=== PATIENT | female | born 1950 | race Hispanic/Latino ===

== ENCOUNTER 2018-09-18 06:53 | Day surgery (SDC) | payer OTHER ==
[2018-09-15 12:27] LABS: Absolute Lymphocytes (CBC) 2.6 K/uL (0.7-4.9); Absolute Monocytes 0.5 K/uL (0.1-1.3); Absolute Neutrophil 4.8 K/uL (1.8-8.0); Basophils % 0.6 % (0-1.3); Eosinophils % 1.5 % (0-4.4); Hematocrit 39.6 % (36.0-45.0); Lymphocytes % 32.3 % (15.3-44.8); MPV 8.7 fL (7.6-11.3); Monocytes % 6.6 % (3.3-12.3); RBC Red Blood Cell Count 4.41 M/uL (3.86-4.86)
--- NOTE | 2018-09-15 12:33 | RAD REPORT ---
EXAM DESCRIPTION: RAD - Chest Pa And Lat (2 Views) - 09/15/2018 12:25 pm CLINICAL HISTORY: preop Chest pain. COMPARISON: No comparisons TECHNIQUE: PA and lateral views of the chest were obtained. FINDINGS: The lungs are hyperexpanded compatible with COPD. The heart is upper limit of normal in si ze. No fracture or aggressive bony process. Sternotomy wires. IMPRESSION: COPD without acute process identified.
[2018-09-15 12:39] LABS: Potassium 4.2 mmol/L (3.5-5.1)
[2018-09-15 12:57] LABS: Protime INR 0.98
--- OUTSIDE RECORDS SUMMARY | 2018-09-18 06:56 | XMS REPORT | Continuity of Care Document ---
:1950 Author Organization Interface Problems Problem Status Onset Classification Date Comments Source Date Reported Essential 09/10/19 Diagnosis 09/09/2017 [facility] hypertension 18 Viral bronchitis 09/10/19 Diagnosis 09/09/2017 [facility] 18 Hacking cough 09/10/19 Diagnosis 09/09/2017 [facility] 18 Nausea and 08/21/19 Diagnosis 08/21/2016 [facility] vomiting 17 Epigastric pain 08/21/19 Diagnosis 08/21/2016 [facility] 17 Medications Medication Details Route Status Patient Ordering Order Source Instructions Provider Date Aspirin 81 MG aspirin 81 mg Active [facility] Chewable Tablet chewable tablet Chew 1 tablet every day by oral route. clopidogrel 75 MG clopidogrel 75 Active [facility] Oral Tablet mg tablet Fenofibrate 48 MG fenofibrate Active [facility] Oral Tablet nanocrystallize d 48 mg tablet TAKE 1 TABLET BY MOUTH EVERY DAY Hydrochlorothiazid hydrochlorothia Active [facility] e 25 MG Oral zide 25 mg Tablet tablet 24 HR Isosorbide isosorbide Active [facility] Mononitrate 60 MG mononitrate ER Extended Release 60 mg Oral Tablet tablet,extended release 24 hr TAKE 1/2 TAB BY MOUTH EVERY MORNING Levothyroxine levothyroxine Active [facility] Sodium 0.075 MG 75 mcg tablet Oral Tablet TAKE ONE TABLET BY MOUTH EVERY DAY Lisinopril 20 MG lisinopril 20 Active [facility] Oral Tablet mg tablet Medrol (Michael) 4 mg Medrol (Michael) 4 Active [facility] tablets in a dose mg tablets in a pack dose pack Take as directed 200 ACTUAT ProAir HFA 90 Active [facility] Albuterol 0.09 mcg/actuation MG/ACTUAT Metered aerosol inhaler Dose Inhaler Inhale 2 puffs [ProAir] every 4-6 hours by inhalation route as directed for 10 days. Rosuvastatin rosuvastatin 20 Active [facility] calcium 20 MG Oral mg tablet TAKE Tablet 1 TABLET BY MOUTH EVERY DAY Ergocalciferol Vitamin D2 Active [facility] 66890 UNT Oral 50,000 unit Capsule capsule Atenolol 100 MG atenolol 100 mg Active [facility] Oral Tablet tablet Sucralfate 100 Carafate 100 Active [facility] MG/ML Oral mg/mL oral Suspension suspension [Carafate] carvedilol 25 MG carvedilol 25 Active [facility] Oral Tablet mg tablet Chantix Starting Chantix Active [facility] Month Box 0.5 mg Starting Month (11)-1 mg (42) Box 0.5 mg tablets in dose (11)-1 mg (42) pack tablets in dose pack Cyclobenzaprine cyclobenzaprine Active [facility] hydrochloride 10 10 mg tablet MG Oral Tablet Lisinopril 10 MG lisinopril 10 Active [facility] Oral Tablet mg tablet Omeprazole 20 MG omeprazole 20 Active [facility] Delayed Release mg Oral Capsule capsule,delayed release pantoprazole 40 MG pantoprazole 40 Active [facility] Delayed Release mg Oral Tablet tablet,delayed release Famotidine 20 MG Pepcid 20 mg Active [facility] Oral Tablet tablet Take 1 [Pepcid] tablet twice a day by oral route for 10 days. Citric Acid 20530 Prepopik 10 Active [facility] MG / Magnesium mg-3.5 gram-12 Oxide 3500 MG / gram oral picosulfate sodium powder packet 10 MG Powder for Oral Solution [Prepopik] Ondansetron 8 MG Zofran 8 mg Active [facility] Oral Tablet tablet Take 1 [Zofran] tablet every 8 hours by oral route for 2 days. Allergies, Adverse Reactions, Alerts Substance Category Reaction Severity Reaction Status Date Comments Source type Reported Immunizations Immunization Date Given Site Status Last Updated Comments Source Results Order Results Value Reference Date Interpretation Comments Source Name Range Influenza A negative [facility] 2017 Influenza B negative [facility] 2017 Vital Signs Vital Sign Value Date Comments Source Diastolic (mm Hg) 82 09/09/2017 [facility] Height 63 09/09/2017 [facility] Systolic (mm Hg) 144 09/09/2017 [facility] Weight 138 09/09/2017 [facility] Diastolic (mm Hg) 102 08/20/2016 [facility] Height 63 08/20/2016 [facility] Systolic (mm Hg) 187 08/20/2016 [facility] Weight 138 08/20/2016 [facility] Encounters Location Location Encounter Encounter Reason Attending ADM DC Status Source Details Type Number For Provider Date Date Visit [place] Eleazar Zamora [id number] Sera 08/20 [facility] N[facility]hi, [id number] Nidhi - AD COMPOSITOR: [id number] [address] , Ph. JILL - Dari [id number] Dari 09/09 [facility] Wesley [phone] Wesley - PA-C: [id number] [address], [address] [place] [address], [place] [address] , Ph. Procedures Procedure Code Date Perfomer Comments Source CABG/Stent [facility]
--- OUTSIDE RECORDS SUMMARY | 2018-09-18 06:56 | XMS REPORT | Clinical Summary ---
:1950 Author Organization [facility] Address [address] [place] [address] Care Team Providers Name Role Phone Shadi Morales MD Primary Care Provider Allergies Active Allergy Reactions Severity Noted Date Comments Hydrocodone 08/24/2018 Medications Medication Sig Dispensed Refills Start Date End Date Status fenofibrate (TRICOR) Take 48 mg by 0 Active 48 MG tablet mouth daily. lisinopril Take 20 mg by 0 Active (PRINIVIL,ZESTRIL) mouth daily. 20 mg tablet clopidogrel (PLAVIX) Take 1 tablet 30 tablet 0 08/26/2018 09/25/2018 Active 75 mg tablet (75 mg total) by mouth daily for 30 days. isosorbide Take 1 tablet 30 tablet 0 08/26/2018 09/25/2018 Active mononitrate (IMDUR) (60 mg total) 60 MG 24 hr tablet by mouth daily for 30 days. levothyroxine Take 1 tablet 30 tablet 0 08/26/2018 09/25/2018 Active (SYNTHROID, LEVOXYL) (75 mcg 75 mcg tablet total) by mouth daily for 30 days. aspirin (ECOTRIN) Take 1 tablet 30 tablet 0 08/27/2018 09/26/2018 Active 325 MG enteric (325 mg coated tablet total) by mouth daily for 30 days. ranolazine (RANEXA) Take 1 tablet 60 tablet 0 08/26/2018 09/25/2018 Active 500 MG 12 hr ER (500 mg tablet total) by mouth 2 (two) times a day for 30 days. rosuvastatin Take 1 tablet 30 tablet 0 08/26/2018 09/25/2018 Active (CRESTOR) 20 MG (20 mg total) tablet by mouth every evening for 30 days. NIFEdipine XL Take 1 tablet 60 tablet 0 08/26/2018 09/25/2018 Active (PROCARDIA XL) 60 MG (60 mg total) 24 hr tablet by mouth 2 (two) times a day for 30 days. isosorbide Take 60 mg by 0 08/26/2018 Discontinued mononitrate (IMDUR) mouth daily. 60 MG 24 hr tablet rosuvastatin Take 20 mg by 0 08/26/2018 Discontinued (CRESTOR) 20 MG mouth every tablet evening. clopidogrel (PLAVIX) Take 75 mg by 0 08/26/2018 Discontinued 75 mg tablet mouth daily. levothyroxine Take 75 mcg 0 08/26/2018 Discontinued (SYNTHROID, LEVOXYL) by mouth 75 mcg tablet daily. ranolazine (RANEXA) Take 500 mg 0 08/26/2018 Discontinued 500 MG 12 hr ER by mouth 2 tablet (two) times a day. amLODIPine (NORVASC) Take 5 mg by 0 08/26/2018 Discontinued 5 mg tablet mouth daily. Active Problems Problem Noted Date Chest pain 08/24/2018 Encounters Date Type Specialty Care Team Description 08/25/2018 Surgery Procedural Cardiology Earl Montemayor Bypass graft left MD [place] [facility] [40208 (CPT)] 08/24/2018 - Emergency General Internal Ray, Miguel Angel Chest pain, unspecified type (Primary Dx); 08/26/2018 Medicine ANTONIO Kaur Coronary artery disease of [place] artery of [place] heart with stable angina pectoris (HCC) Jo Ann Bajwa MD Kandala, Ranganath, MD Mistry, Kalpna Kantilal, MD 08/24/2018 Travel after 09/17/2017 Social History Tobacco Use Types Packs/Day Years Used Date Current Some Day Smoker Smokeless Tobacco: Never Used Alcohol Use Drinks/Week oz/Week Comments No Alcohol Habits Answer Date Recorded How often do you have a drink containing alcohol? Never 08/24/2018 How many drinks containing alcohol do you have on a typical Not asked day when you are drinking? How often do you have six or more drinks on one occasion? Not asked Sex Assigned at Date Recorded Not on file Job Start Date Occupation Industry Not on file Not on file Not on file Travel History Travel Start Travel End No recent travel history available. Last Filed Vital Signs Vital Sign Reading Time Taken Blood Pressure 123/60 08/26/2018 12:07 PM CDT Pulse 73 08/26/2018 12:07 PM CDT Temperature 36.3 C (97.4 F) 08/26/2018 12:07 PM CDT Respiratory Rate 16 08/26/2018 12:07 PM CDT Oxygen Saturation 95% 08/26/2018 12:07 PM CDT Inhaled Oxygen Concentration - - Weight 60.3 kg (133 lb) 08/25/2018 2:14 PM CDT Height 160 cm (5' 3") 08/24/2018 11:38 PM CDT Body Mass Index 23.56 08/25/2018 2:14 PM CDT Plan of Treatment Health Maintenance Due Date Last Done Comments CERVICAL CANCER SCREENING 1973 BREAST CANCER SCREENING 2002 COLON CANCER SCREENING 2002 SHINGLES VACCINES (#1) 2002 65+ PNEUMOCOCCAL VACCINE (1 of 2 - PCV13) 2017 PNEUMOCOCCAL POLYSACCHARIDE VACCINE AGE 65 AND OVER 2017 INFLUENZA VACCINE 12/14/2018 Implants Implanted Type Area Workforce Development Assistant Device Shelf Model / Identifier Expiration Serial / Lot Date Stent System 2.25 X 22mm Resolute [place] Rx Coronary - [id number] Coronary N/A : [employer] [facility] - 07/04/2019 [id number] / Implanted: Qty: 1 on 08/25/2018 by Earl Montemayor MD Stents N/A CARDIAC RYHTYM / MGMT [id number] Procedures Procedure Name Priority Date/Time Associated Comments Diagnosis ECHOCARDIOGRAM 2D Routine 08/26/2018 1:00 Results for this COMPLETE W MMODE PM CDT procedure are in SPECTRAL COLOR DOPPLER the results (82518) section. ESTIMATED GFR Routine 08/26/2018 4:00 Results for this AM CDT procedure are in the results section. HC COMPLETE BLD COUNT Routine 08/26/2018 4:00 Results for this W/AUTO DIFF AM CDT procedure are in the results section. BASIC METABOLIC PANEL Routine 08/26/2018 4:00 Results for this AM CDT procedure are in the results section. CV PCI STENT Routine 08/25/2018 5:09 Results for this PM CDT procedure are in the results section. CV BYPASS GRAFT LEFT Routine 08/25/2018 5:09 Results for this HEART PM CDT procedure are in the results section. TROPONIN Timed 08/25/2018 4:45 Results for this AM CDT procedure are in the results section. ECG 12-LEAD Routine 08/25/2018 12:15 Results for this AM CDT procedure are in the results section. TROPONIN Timed 08/24/2018 11:40 Results for this PM CDT procedure are in the results section. XR CHEST 1 VW PORTABLE STAT 08/24/2018 7:35 Results for this PM CDT procedure are in the results section. ESTIMATED GFR STAT 08/24/2018 7:26 Results for this PM CDT procedure are in the results section. B NATRIURETIC PEPTIDE STAT 08/24/2018 7:26 Results for this PM CDT procedure are in the results section. TROPONIN STAT 08/24/2018 7:26 Results for this PM CDT procedure are in the results section. COMPREHENSIVE METABOLIC STAT 08/24/2018 7:26 Results for this PANEL PM CDT procedure are in the results section. HC COMPLETE BLD COUNT STAT 08/24/2018 7:26 Results for this W/AUTO DIFF PM CDT procedure are in the results section. ECG ED PRELIMINARY Routine 08/24/2018 6:58 Results for this INTERPRETATION PM CDT procedure are in the results section. ECG 12-LEAD STAT 08/24/2018 6:14 Results for this PM CDT procedure are in the results section. after 09/17/2017 Results Echocardiogram complete w contrast and 3D if needed (08/26/2018 1:00 PM CDT) AoV Area, Vmax 2.62 cm2 [facility] AoV Area, VTI 3.07 cm2 [facility] AoV Mean PG 3.00 mmHg [facility] AoV Peak PG 4.84 mmHg [facility] AoV Vmax 1.10 m/s [facility] AoV VTI 0.18 m [facility] IVS,d 0.78 cm [facility] IVS/LVPW,2D 0.96 [facility] Left Atrium Dimension Anterior 3.00 cm [facility] LV,d 4.33 cm [facility] LV EF,2D 66.74 % [facility] LV,s 3.00 cm [facility] LVOT area 3.14 cm2 [facility] LVOT Diam,S 2.00 cm [facility] LVOT Vmax 0.92 m/s [facility] LVOT VTI 0.18 m [facility] LVPWD,d 0.81 cm [facility] MV E A ratio 0.89 [facility] E wave decelartion time 239.00 msec [facility] MV Peak A Izaiah 0.75 m/s [facility] MV valve area p 1/2 method 3.17 cm2 [facility] MV Peak E Izaiah 0.66 m/s [facility] MV stenosis pressure 1/2 time 69.31 ms [facility] AV LVOT peak gradient 3.36 mmHg [facility] Ao Root,d,2D 3.20 cm [facility] LV SYS VOL 35.00 ml [facility] LV MORALEZ VOL 84.44 ml [facility] LV SV Teich 2D 49.44 ml [facility] LV Vol s Teich PSAX 35.00 ml [facility] AoV Vmn 0.82 [facility] LV FS Teich 2D 30.72 [facility] MV AE ratio 1.13 [facility] LV FS Cube 2D 30.72 [facility] LVOT Vmn 0.67 [facility] Aov area Vmn 2.54 cm2 [facility] LVOT mean grad 2.00 mmHg [facility] MAX Pred HR 154.34 [facility] 85 of MPHR 131.19 [facility] Ao d LA s ratio 1.07 [facility] Calc MPHR 154.34 bpm [facility] LV SV Cube 2D 54.18 ml [facility] LV vol d cube 2D 81.18 ml [facility] LV vol s cube 2D 27.00 ml [facility] MV Decel slope 2.77 m/s2 [facility] Pred Exer Dur R1 7.29 [facility] Pred METS R1 6.16 [facility] Velocity Ratio (V1/V2) 0.84 m/s [facility] EF 58.55 % [facility] E/A ratio 0.88 [facility] Narrative Performed At Left Ventricular ejection fraction is 55 - 60% [facility] Spectral Doppler shows reduced, appropriate for age pattern of LV diastolic filling The aortic valve appears trileaflet and mildly calcified Trace mitral valve regurgitation Trace tricuspid valve regurgitation The pulmonic valve appears normal Normal right ventricular size, wall thickness and global function Performing Organization Address City/State/Zipcode Phone Number [facility] [address] [place] [address] Estimated GFR (08/26/2018 4:00 AM CDT)Only the most recent of2 resultswithin the time period is included. Estimated GFR >=90 mL/min/1.73 m2 AMARI ROMAN CATHOLIC SUGAR Comment: [facility] CatergoryUnitsInterpretation G1 >=90 Normal or high G2 60-89Mildly decreased [id number] to moderately decreased [id number] to severely decreased G4 15-29Severely decreased G5 <15Kidney failure The eGFR was calculated using the Chronic Kidney Disease Epidemiology Collaboration (CKD-EPI) equation. Interpretation is based on recommendations of the National Kidney Foundation-Kidney Disease Outcomes Quality Initiative (NKF-KDOQI) published in 2014. Specimen Plasma specimen Performing Organization Address City/[facility]/Zipcode Phone Number [facility] DEPARTMENT OF PATHOLOGY [address] [place] [address] AND GENOMIC MEDICINE [facility] [address] [place] [address] HOSPITAL CBC with platelet and differential (08/26/2018 4:00 AM CDT)Only the most recent of2 resultswithin the time period is included. WBC 8.3 4.5 - 11.0 k/uL [facility] RBC 4.46 4.20 - 5.50 m/uL [facility] HGB 13.7 12.0 - 16.0 g/dL [facility] HCT 40.5 37.0 - 47.0 % [facility] MCV 90.8 82.0 - 100.0 fL [facility] MCH 30.7 27.0 - 34.0 pg [facility] MCHC 33.8 31.0 - 37.0 g/dL [facility] RDW - SD 43.8 37.0 - 55.0 fL [facility] MPV 10.8 6.9 - 11.0 fL [facility] Platelet count 215 150 - 400 K/uL [facility] Nucleated RBC 0.00 /100 WBC [facility] Neutrophils 64.7 39.0 - 69.0 % [facility] Lymphocytes 25.3 25.0 - 45.0 % [facility] Monocytes 7.3 0.0 - 10.0 % [facility] Eosinophils 1.9 0.0 - 5.0 % [facility] Basophils 0.4 0.0 - 1.0 % [facility] Immature granulocytes 0.4 0.0 - 1.0 % [facility] Specimen Blood Performing Organization Address City/[facility] Phone Number [facility] DEPARTMENT OF PATHOLOGY [id number] [place] [address] [facility] [id number] [place] [address] Basic metabolic panel (08/26/2018 4:00 AM CDT) Sodium 139 135 - 148 mEq/L [facility] Potassium 3.8 3.5 - 5.0 mEq/L [facility] Chloride 105 98 - 112 mEq/L [facility] CO2 21 (L) 24 - 31 mEq/L [facility] Anion gap 13@ANIO 7 - 15 mEq/L [facility] BUN 15 8 - 23 mg/dL [facility] Creatinine 0.63 0.50 - 0.90 mg/dL [facility] Glucose 79 65 - 99 mg/dL [facility] Calcium 9.4 8.8 - 10.2 mg/dL [facility] Specimen Plasma specimen Performing Organization Address City/State/Zipcode Phone Number [facility] DEPARTMENT OF PATHOLOGY [id number] [place] [address] Cv dairy lab technician procedure (08/25/2018 5:09 PM CDT) Impressions Performed At 1.Patent AMARAL to LAD. [facility] 2.Patent SVG to OM2. 3.Patent SVG to OM3. 4.Severe left main disease. 5.Severe distal LAD in-stent restenosis 95%. PLAN: PCI of the distal LAD in-stent restenosis to the AMARAL to LAD. PROCEDURE: A 6-Monegasque FLORES guide was then used to cannulate the AMARAL to LAD.A 0.014 BMW Volcano wire was then used to cross the distal LAD.A 2.0 x 12 balloon was then used to do predilatation.Multiple predilatations were done. Following this, a Resolute Jamal 2.25 x 22 mm drug-eluting stent was then advanced into the distal LAD in-stent restenosis.This was then deployed at high atmospheres. Following this, additional cineangiography was done to confirm stent was well deployed, there were no perforations.There was a small waste in the proximal portion.A 2.5 x 12 noncompliant balloon was then used to postdilate the proximal portion of the stent.Following this, additional cineangiography was done to confirm stent was well deployed, there were no perforations or dissections, which were not.The overall procedure was a success with 0% stenosis and GARY-3 flow upon completion.The patient tolerated the procedure well.There were no complications.Hemostasis was obtained by manual pressure as there was severe calcification of the right common femoral artery. IMPRESSION: Successful Resolute [place] 2.25 x 22 mm drug-eluting stent to the distal LAD in-stent restenosis. PLAN: Maximal medical therapy. MEDICATIONS GIVEN THROUGHOUT THE PROCEDURE: Conscious sedation, radial cocktail, hydralazine IV, labetalol IV, Brilinta 180, Plavix 300. Thank you for the opportunity in participating in this patient's care. Please call if any questions. Narrative Performed At [facility] Patent AMARAL to LAD. Distal LAD stent, severe instent resteonsis, 95% Severe proximal 1st diagonal 90% Severe ostial LCx, 90% Patent SVG to OM2 Chronic total 100%, RCA stent Patent SVG to RCA EDP 13 Successful Resolute Jamal 2.25 x 22 mm AIRAM to distal LAD instent restenosis. INDICATION FOR PROCEDURE: Unstable angina. CANARY RAISER: Earl Montemayor MD PROCEDURE IN DETAIL: After informed consent obtained including bleeding, WI, stroke, problems with circulation or electrical activity as well as worsening renal function with contrast, need for dual antiplatelet therapy.After stent placement, the patient was prepped and draped in usual sterile fashion.Local anesthesia was given.A 5-Monegasque short sheath was used to gain access to the right common femoral artery using ultrasound guidance.There was resistance upon entering the distal abdominal aorta; therefore, a pigtail was done and wire was then readvanced.Everything was then followed with long exchange J-wire. Selective cine coronary angiography was then performed in various left and right anterior oblique projections using manual injection of Visipaque contrast along with a JR4 and a JL3.5 diagnostic catheter.Following this, JR4 diagnostic catheter was then advanced in the left ventricle.It was changed for pigtail and the pigtail was done with the left ventriculogram.Pressure recorded during pullback of the catheter from the left ventricle into the ascending aorta. Following this, JR4 diagnostic catheter was then used to engage the SVG to OM2 and it was injected.It was then used to engage the SVG to RCA and it was injected.It was then used to engage the AMARAL to LAD and injected. Following this, due to severe stenosis, exchanged over long J wire for PCI. FINDINGS: 1.Left main trunk.Left main trunk is a large caliber vessel, is approximately 32 mm in length, has severe distal left main 70%. 2.Left anterior descending artery.Left anterior descending artery is a large caliber vessel.There is occlusion of 100% in the proximal area, there is a proximal first diagonal that also has a severe lesion 90%. 3.Left circumflex artery.Left circumflex artery is a large caliber vessel, contains one large OM branch in the proximal section and one moderate OM branch in the mid section and distally it becomes one posterior lateral branch. The ostial circumflex has a severe 90% lesion.There is competitive flow in an OM2. 4.Right coronary artery.Right coronary artery is a large caliber codominant vessel.There is a stent in the proximal RCA, stent is 100% occluded. 5.Left ventriculogram.EF is 50%, EDP noted. 6.AMARAL to LAD.AMARAL to LAD is patent.The distal LAD after the touchdown on the AMARAL has a stent that has severe in-stent restenosis that was 95%. 7.SVG to RCA.This was patent without flow limiting lesions. 8.SVG to OM2.This was patent without any flow limiting lesions. 9.Distal abdominal aortogram.Distal abdominal aortogram shows there is severe distal abdominal aortic disease with severe calcifications. Performing Organization Address City/State/Zipcode Phone Number [facility] [address] [place] [address] Troponin (08/25/2018 4:45 AM CDT)Only the most recent of3 resultswithin the time period is included. Troponin <0.30 0.00 - 0.30 ng/mL [facility] Comment: HOSPITAL 0.11 - 1.49 ng/mlMay indicate increased risk of acute coronary syndrome. >=1.5 ng/mlConsistent with acute myocardial infarction. The diagnostic value of a single normal or non-diagnostic result is questionable.Serial samples at 2-6 hour intervals are required to rule out acute myocardial injury. Specimen Plasma specimen Performing Organization Address City/[facility]/Zipcode Phone Number [facility] DEPARTMENT OF PATHOLOGY [id number] [place] [address] AND GENOMIC MEDICINE [facility] [phone] [place] [address] ECG 12 lead (08/25/2018 12:15 AM CDT)Only the most recent of2 resultswithin the time period is included. Ventricular rate 62 [facility] Atrial rate 62 [facility] AR interval 192 [facility] QRSD interval 98 [facility] QT interval 438 [facility] QTC interval 444 [facility] P axis 1 35 [facility] QRS axis 1 76 [facility] T wave axis 67 [facility] EKG impression Normal sinus rhythm-Nonspecific ST and T wave [facility] MUSE abnormality-Abnormal ECG-In automated comparison with ECG of 26-DEC-2015 03:49,-No significant change was found- Narrative Performed At Performing Organization Address [facility] Phone Number [facility] MUSE [address] [place] [address] XR Chest 1 Vw Portable (08/24/2018 7:35 PM CDT) Narrative Performed At EXAMINATION:XR CHEST 1 VW PORTABLE [facility] CLINICAL HISTORY:Chest pain COMPARISON:12/25/2015 IMPRESSION: 1.Lungs are clear. 2.Normal heart size. Poststernotomy. 3.No acute osseous abnormality. [facility]-[id number] Procedure Note Hm Interface, Radiology Results Incoming - 08/24/2018 7:40 PM CDT EXAMINATION: XR CHEST 1 VW PORTABLE CLINICAL HISTORY: Chest pain COMPARISON: 12/25/2015 IMPRESSION: 1. Lungs are clear. 2. Normal heart size. Poststernotomy. 3. No acute osseous abnormality. [facility]-[id number] Performing Organization Address [facility]/Zipcode Phone Number [facility] [address] [place] [address] B natriuretic peptide (08/24/2018 7:26 PM CDT) BNP 31 0 - 100 pg/mL [facility] Specimen Blood Performing Organization Address City/[facility]/Zipcode Phone Number [facility] DEPARTMENT OF PATHOLOGY [address] [place] [address] [facility] [id number] [place] [address] Comprehensive metabolic panel (08/24/2018 7:26 PM CDT) Sodium 142 135 - 148 mEq/L [facility] Potassium 4.0 3.5 - 5.0 mEq/L [facility] Chloride 106 98 - 112 mEq/L [facility] CO2 24 24 - 31 mEq/L [facility] Anion gap 12@ANIO 7 - 15 mEq/L [facility] BUN 29 (H) 8 - 23 mg/dL [facility] Creatinine 0.64 0.50 - 0.90 mg/dL [facility] Glucose 105 (H) 65 - 99 mg/dL [facility] Calcium 10.0 8.8 - 10.2 mg/dL [facility] Protein 7.8 6.3 - 8.3 g/dL [facility] Albumin 4.4 3.5 - 5.0 g/dL [facility] A/G ratio 1.3 0.7 - 3.8 [facility] Alkaline phosphatase 82 35 - 104 U/L [facility] AST 22 10 - 35 U/L [facility] ALT 20 5 - 50 U/L [facility] Total bilirubin <0.2 0.2 - 1.2 mg/dL [facility] Specimen Plasma specimen Performing Organization Address City/State/Zipcode Phone Number [facility] DEPARTMENT OF PATHOLOGY [address] [place] [address] [facility] [address] ECG ED Preliminary Interpretation - Not an Order (08/24/2018 6:58 PM CDT) Narrative Performed At Jo Ann Bajwa MD 08/26/20186:17 AM ECG ED Preliminary Interpretation - Not an Order Performed by: Miguel Angel Dover PA Authorized by: Miguel Angel Dvoer PA ECG reviewed by ED Physician in the absence of a pipeline construction inspector: yes Previous ECG: Previous ECG:Unavailable Interpretation: Interpretation: normal Rate: ECG rate:80 ECG rate assessment: normal Rhythm: Rhythm: sinus rhythm Ectopy: Ectopy: none QRS: QRS intervals:Normal Conduction: Conduction: normal ST segments: ST segments:Normal T waves: T waves: normal after 09/17/2017 Insurance Payer Benefit Plan / Group Subscriber ID Type Phone Address [facility] xxxxxxxx HMO [facility] [place]) [address] [address] Advance Directives Patient has advance care planning documents on file. For more information, please contact:Amari Chino[address] [place] [phone]
--- OUTSIDE RECORDS SUMMARY | 2018-09-18 06:56 | XMS REPORT | Encounter Summary ---
:1950 Author Reason for Visit Medical Complaint Instructions 1. Hacking cough 2. Viral bronchitis Medrol (Michael) 4 mg tablets in a dose pack ProAir HFA 90 mcg/actuation aerosol inhaler rapid flu (A+B) 3. Essential hypertension high blood pressure: care instructions learning about high blood pressure Discussion Note Pneumonia vaccine schedule provided to pt. Plan of Care Reminders Provider Appointments None recorded. Lab Rapid Flu 09/09/2017 [facility] (A+B) Referral None recorded. Procedures None recorded. Surgeries None recorded. Imaging None recorded. Medications Name Start Date aspirin 81 mg chewable tablet Chew 1 tablet every day by oral route. clopidogrel 75 mg tablet fenofibrate nanocrystallized 48 mg tablet TAKE 1 TABLET BY MOUTH EVERY DAY hydrochlorothiazide 25 mg tablet isosorbide mononitrate ER 60 mg tablet,extended release 24 hr TAKE 1/2 TAB BY MOUTH EVERY MORNING levothyroxine 75 mcg tablet TAKE ONE TABLET BY MOUTH EVERY DAY lisinopril 20 mg tablet Medrol (Michael) 4 mg tablets in a dose pack Take as directed ProAir HFA 90 mcg/actuation aerosol inhaler Inhale 2 puffs every 4-6 hours by inhalation route as directed for 10 days. rosuvastatin 20 mg tablet TAKE 1 TABLET BY MOUTH EVERY DAY Vitamin D2 50,000 unit capsule Medications Administered None recorded. Vitals Height Weight BMI Blood Pressure 5 ft 3 in 138 lbs 24.4 kg/m2 144/82 mm[Hg] Lab Results Date Name Specimen Result Interpretation Description Value Range Status Address Rapid Flu Influenza a negative [facility]: (A+B) [address] [place] [address] Influenza B negative [facility]: [address] [place] [address] Allergies Code Code System Name Reaction Severity Status Onset NKDA Problems None recorded. Procedures Date Name Performed by CABG/Stent Information not available Vaccine List None recorded. Social History Smoking Status Former Smoker Past Encounters 09/09/2017 Hacking Cough; Viral Bronchitis; Essential Hypertension [facility] [facility]: [address] [place] [address], [address], [place] [address], Ph. History of Present Illness Cough Reported By: Patient HPI: Location: nasal/sinus. Quality: productive cough, congested, hacking cough. Duration: 2 days. Severity: mild. Onset/Timing: gradual. Context: no sick contacts, no foreign travel, non-smoker. Modifying factors: OTC medication. Associated Symptoms: no sputum production, no shortness of breath, no wheezing, no sweats, no significant weight gain, no significant weight loss, no morning cough, no sore throat, no vomiting, no diarrhea, no rash, no nausea, no fever/chills, no muscle aches, no headache Notes: disrupting sleep Review of Systems Basic Reported By: Patient Constitutional: Constitutional: no fever Eyes: Eyes: no eye complaints Ausw-Dtln-Mrwod-Throat: Ears: no ear complaints. Nose: no nose/sinus problems. Mouth/Throat: no sore throat, no bleeding gums, no mouth complaints, no teeth problems Cardiovascular: Cardiovascular: no chest pain, no shortness of breath, no known heart murmur Respiratory: Respiratory: no wheezing, no shortness of breath, cough Gastrointestinal: Gastrointestinal: no abdominal pain, no vomiting / diarrhea Genitourinary: Genitourinary: no urinary complaints, no discharge Musculoskeletal: Musculoskeletal: no muscle aches, no muscle weakness, no arthralgias/joint pain, no back pain Skin: Skin: no abnormal / changing mole, no jaundice, no rashes Neurologic: Neurologic: no loss of consciousness, no weakness, no numbness, no seizures, no dizziness, no headaches Physical Exam Adult Basic, Adult Female Complete Reported By: Patient Constitutional: General Appearance: healthy-appearing, well-nourished, well-developed. Level of Distress: NAD. Ambulation: ambulating normally Psychiatric: Mental Status: active and alert. Orientation: to time, to place, to person Eyes: Lids and Conjunctivae: non-injected, no discharge, no pallor. Pupils: PERRLA. Corneas: grossly intact. EOM: EOMI. Lens: clear. Sclerae: non-icteric. Vision: acuity grossly intact Uhg-Trzo-Lbdnn-Throat: Ears: no lesions on external ear, no outer ear tenderness, EACs clear, TMs clear. Hearing: no hearing loss. Nose: no lesions on external nose, nares patent, no septal deviation, nasal passages clear, no sinus tenderness, no nasal discharge. Lips, Teeth, and Gums: no mouth or lip ulcers, no bleeding gums, normal dentition. Oropharynx: moist mucous membranes, no erythema, no exudates, tonsils not enlarged Neck: Neck: supple, trachea midline, no masses, FROM. Lymph Nodes: no cervical LAD, no supraclavicular LAD. Thyroid: no enlargement, non-tender, no nodules Lungs: Respiratory effort: no dyspnea, no tachypnea, no use of accessory muscles, no intercostal retractions. Percussion: no dullness, flatness, or hyperresonance. Auscultation: breath sounds normal; hacking cough Cardiovascular: Heart Auscultation: RRR, no murmurs Musculoskeletal:: Motor Strength and Tone: normal motor strength, normal tone. Joints, Bones, and Muscles: normal movement of all extremities, no bony abnormalities, no contractures, no malalignment, no tenderness. Extremities: no cyanosis, no edema Neurologic: Gait and Station: normal gait, normal station Skin: Inspection and palpation: no rash, no lesions, no ulcer, no abnormal nevi, no induration, no nodules, good turgor, no jaundice. Nails: normal Back: Thoracolumbar Appearance: normal curvature
--- OUTSIDE RECORDS SUMMARY | 2018-09-18 06:57 | XMS REPORT | Encounter Summary ---
:1950 Author Reason for Visit Medical Complaint Instructions 1. Nausea and vomiting nausea and vomiting: care instructions Zofran 8 mg tablet 2. Epigastric pain Pepcid 20 mg tablet Discussion Note: None recorded. Plan of Care Patient Instructions Nausea and Vomiting: Care Instructions Your Care Instructions When you are nauseated, you may feel weak and sweaty and notice a lot of saliva in your mouth. Nausea often leads to vomiting. Most of the time you do not need to worry about nausea and vomiting, but they can be signs of other illnesses. Two common causes of nausea and vomiting are stomach flu and food poisoning. Nausea and vomiting from viral stomach flu will usually start to improve within 24 hours. Nausea and vomiting from food poisoning may last from 12 to 48 hours. The doctor has checked you carefully, but problems can develop later. If you notice any problems or new symptoms, get medical treatment right away. Follow-up care is a koehler part of your treatment and safety. Be sure to make and go to all appointments, and call your doctor if you are having problems. It's also a good idea to know your test results and keep a list of the medicines you take. How can you care for yourself at home? To prevent dehydration, drink plenty of fluids, enough so that your urine is light yellow or clear like water. Choose water and other caffeine-free clear liquids until you feel better. If you have kidne y, heart, or liver disease and have to limit fluids, talk with your doctor before you increase the amount of fluids you drink. Rest in bed until you feel better. When you are able to eat, try clear soups, mild foods, and liquids until all symptoms are gone for 12 to 48 hours. Other good choices include dry toast, crackers, cooked cereal, and gelatin dessert, such as Jell-O. When should you call for help? Call 911 anytime you think you may need emergency care. For example, call if: You passed out (lost consciousness). Call your doctor now or seek immediate medical care if: You have symptoms of dehydration, such as: Dry eyes and a dry mouth. Passing only a little dark urine. Feeling thirstier than usual. You have new or worsening belly pain. You have a new or higher fever. You vomit blood or what looks like coffee grounds. Watch closely for changes in your health, and be sure to contact your doctor if : You have ongoing nausea and vomiting. Your vomiting is getting worse. Your vomiting lasts longer than 2 days. You are not getting better as expected. Where can you learn more? Go to [email or web address], log into the web portal, and enter H591 in the search box to learn more about Nausea and Vomiting: Care Instructions. Care instructions adapted under license by [facility]. This care instruction is for use with your licensed healthcare professional. If you have questions about a medical condition or this instruction, a lways ask your healthcare professional. [employer] disclaims any warranty or liability for your use of this information. Reminders Provider Appointments None recorded. Lab None recorded. Referral None recorded. Procedures None recorded. Surgeries None recorded. Imaging None recorded. Medications Name Start Date atenolol 100 mg tablet Carafate 100 mg/mL oral suspension carvedilol 25 mg tablet Chantix Starting Month Box 0.5 mg (11)-1 mg (42) tablets in dose pack clopidogrel 75 mg tablet cyclobenzaprine 10 mg tablet fenofibrate nanocrystallized 48 mg tablet hydrochlorothiazide 25 mg tablet isosorbide mononitrate ER 60 mg tablet,extended release 24 hr levothyroxine 75 mcg tablet lisinopril 10 mg tablet lisinopril 20 mg tablet omeprazole 20 mg capsule,delayed release pantoprazole 40 mg tablet,delayed release Pepcid 20 mg tablet Take 1 tablet twice a day by oral route for 10 days. Prepopik 10 mg-3.5 gram-12 gram oral powder packet rosuvastatin 20 mg tablet Vitamin D2 50,000 unit capsule Zofran 8 mg tablet Take 1 tablet every 8 hours by oral route for 2 days. Medications Administered None recorded. Vitals Height Weight BMI Blood Pressure 5 ft 3 in 138 lbs 24.4 (1) 168/100 (2) 187/102 Lab Results None recorded. Allergies Code Code System Name Reaction Severity Onset NKDA Problems None recorded. Procedures None recorded. Vaccine List None recorded. Social History Smoking Status Never Smoker Past Encounters 08/20/2016 Nausea and Vomiting; Epigastric Pain Sera Terrell, [employer]: [address], [address], [place] [address], Ph. History of Present Illness Ktoboq-Yurbppnq-Xthwikwt / Abdominal Pain Reported By: Patient HPI: Quality: improving; VOMITING. Severity: moderate. Duration: present for < 1 week. Onset/Timing: no nocturnal symptoms, started after an event, 4-10 times a day. Context: no one else with similar symptoms, no recent camping, no recent picnic, no possible food sources, no recent travel, history of GERD. Alleviating factors: OTC medication. Associated Symptoms: no abdominal pain, no excess gas, no fever/chills, no rash, no joint pain, no weight loss, no heartburn, no blood in stool, no mucus in stool, no black or tarry stools, no weakness, no nutrient deficiency, no headache, no feeling of fullness/mass in throat, no muscle aches, no bitter taste in the mouth, no difficulty swallowing (dysphagia), nausea, vomiting Review of Systems Basic Reported By: Patient Constitutional: Constitutional: no fever Eyes: Eyes: no eye complaints Bghr-Kjdn-Vombj-Throat: Ears: no ear complaints. Nose: no nose/sinus problems. Mouth/Throat: no sore throat, no bleeding gums, no mouth complaints, no teeth problems Cardiovascular: Cardiovascular: no chest pain, no shortness of breath, no known heart murmur Respiratory: Respiratory: no cough, no wheezing, no shortness of breath Gastrointestinal: Gastrointestinal: abdominal pain, vomiting Genitourinary: Genitourinary: no urinary complaints, no discharge [...] Appearance: healthy-appearing, well-nourished, well-developed. Level of Distress: mild distress. Ambulation: ambulating normally Psychiatric: Mental Status: active and alert. Orientation: to time, to place, to person Lungs: Respiratory effort: no dyspnea, no tachypnea, no use of accessory muscles, no intercostal retractions. Auscultation: breath sounds normal Cardiovascular: Heart Auscultation: RRR, no murmurs Neurologic: Gait and Station: normal gait, normal station Abdomen: Bowel Sounds: normal. Inspection and Palpation: soft, non-distended, no guarding, no rebound tenderness, no masses, no CVA tenderness, epigastric tenderness. Liver: non-tender, no hepatomegaly. Spleen: non-tender, no splenomegaly. Hernia: none palpable
--- OUTSIDE RECORDS SUMMARY | 2018-09-18 06:57 | XMS REPORT ---
:1950 [facility] Address [address] [place] [address] Care Team Providers Name Role Phone Unavailable Unavailable Unavailable Problems This patient has no known problems. Allergies, Adverse Reactions, Alerts This patient has no known allergies or adverse reactions. Medications This patient has no known medications. Results Test Description Test Time Test Comments Text Results Atomic Results Result Comments SCR MAMM BILATERAL MONIQUE 2018-07-12 15:39:46 - SCR MAMM BILATERAL MONIQUE CAD CAD DIGITAL DIGITALBILATERAL DIGITAL SCREENING MAMMOGRAM 3D/2D WITH CAD: 07/05/2018CLINICAL: Asymptomatic. Digital breast tomosynthesis was performed in addition to routine CC and MLO views. Current mammographic images were evaluated by either a [employer] M-Vu or a [employer] ImageChecker CAD (computer aided detection system). No prior exams are currently available for comparison. The tissue of both breasts is heterogeneously dense. This may lower the sensitivity of mammography. There is a benign calcification in the right breast. There also are benign calcifications in the left breast. Additionally, there is a biopsy clip in the right breast. No suspicious mass, architectural distortion, malignant type calcification, or lymph node abnormality detected. IMPRESSION: BENIGNThere is no mammographic evidence of malignancy. Resume annual screening mammography in one year. The location given by the patient where prior mammograms were obtained has replied as having no record of a prior encounter with this patient. Please advise if you have a record of the location where prior studies were performed so that we can make attempts to obtain them for comparison. Your patient's mammogram demonstrates that she has dense breast tissue. This can hide abnormalities. In compliance with [place] law (H[place]'s Law), your patient has been sent a letter which informs her of her breast density and notifies her that, depending on her individual risk factors for the development of breast cancer, she might benefit from additional screening tests such as ultrasound. Dense breast tissue, in and of itself, is a relatively common condition. Therefore, this information is not provided to cause undue concern, but rather to raise awareness and to promote discussion regarding the presence of other risk factors, in addition to dense breast tissue.Jude Rosen M.D. rb/:07/12/2018 15:39:46 Attending Technologist: Luz Combs MM, [facility] MammographyImaging Technologist: Trudi Vu MM, [facility] Mammographyletter sent: BIRADS 1-2 Normal Mammogram BI-RADS: 2 Benign
[2018-09-18] MEDS ORDERED: LIDOCAINE 1% MPF 30 ML VIAL ONE ×2 (07:14→07:27)
[2018-09-18] MEDS ORDERED: NA CHLORIDE 0.9% 500 ML ONE (07:22)
[2018-09-18] MEDS ORDERED: HEPA 1000U/500MLS 2,000 UNIT/1,000 ML BAG IV ONE (07:27)
[2018-09-18] MEDS ORDERED: HEPARIN 5000 UNIT/ML 1 ML VIAL ONE (07:55)
[2018-09-18] MEDS ORDERED: FENTANYL CITR 100 MCG/2 ML ONE (07:56)
[2018-09-18] MEDS ORDERED: MIDAZOLAM HCL 2 MG/2 ML INJ ONE (07:56)
[2018-09-18] MEDS ORDERED: EPINEPHrine 1 MG/10 ML SYR ONE (07:57)
[2018-09-18] MEDS ORDERED: NITROGLYCERIN/D5W 0 MG/0 ML BTL IV ONE (08:01)
[2018-09-18] MEDS ORDERED: NITROGLYCERIN 100 MCG/ML SYR (for cath lab use only) IV ONE (08:01)
[2018-09-18] MEDS ORDERED: ATROPINE SULF 1 MG/10 ML SYR IV ONE (08:12)
--- NOTE | 2018-09-18 18:38 | OP ---
Surgeon: Moe Tracey MD Procedure: Abdominal angiogram with runoffs and selective bilateral carotid angiography. Procedure Findings: The patient's right internal carotid artery has mild plaque. The patient's left internal carotid artery has a 90+ percent stenosis at its origin. The patient's aorta has been jeannie sandy with an aortobifemoral graft. The graft material is much larger diameter than her [place] aorta. It is free of any stenosis or thrombus or dissection. The arteries from the common femorals down ar e free of any significant stenosis until well below the popliteals. Then, all 3 branches on each mariya e have severe stenosis. The flow is much worse on the right than the left. There is no single focal stenosis that is likely to help her circulation in her right leg. Procedure In Detail: The patient had a carotid bruit. Doppler showing a tight stenosis. She was br ought to the cardiac laboratory phlebotomist in a fasting state sedated with Versed and fentanyl. Prepared and drap ed in usual sterile fashion. Left femoral approach was used. We entered the artery with an 18-gauge needle, cannulated the vessel with a guidewire, placed a 4-Syrian sheath. We were able to direct a JR4 guide into the aortic arch and we could selectively cannulate both left internal carotid and righ t internal carotids with this catheter. We took 2 views on the right, 1 view on the left demonstrate d the anatomy successfully. We then turned our attention to the aorta. We placed via pigtail in the graft material well below the renal arteries and injected 60 cc of contrast over 4 seconds and angio gram done of the vessels all the way down to the ankles bilaterally. We then withdrew the catheter o krzysztof a guidewire and because the sheath went into graft material, we elected to close using manual pre ssure. There is only a 4-Syrian hole, so the chances of success are very high. Complications From The Procedure: None. Estimated Blood Loss: 20 cc. Director Of Promotions: Maria Eugenia Lacy. ZULEIKA/KELSIE Voice ID: [id number] Report ID: [id number]
== END 2018-09-18 14:37 | disposition home or self-care (01) ==
LOC: CCL 06:53
PROVIDERS: ATTEND Internal Medicine
DX: I65.23 Occlusion and stenosis of bilateral carotid arteries (principal); I25.810 Atherosclerosis of coronary artery bypass graft(s) without angina pectoris; I10 Essential (primary) hypertension; E78.2 Mixed hyperlipidemia; J44.9 Chronic obstructive pulmonary disease, unspecified; F17.210 Nicotine dependence, cigarettes, uncomplicated; Z79.82 Long term (current) use of aspirin; Z79.899 Other long term (current) drug therapy; Z95.1 Presence of aortocoronary bypass graft; Z95.5 Presence of coronary angioplasty implant and graft
CPT/HCPCS: 85025; 80048; 36415; 85610; 85730; 71046; 75630; 36222; C1893; J2250; J3010; J0171; J1644